=== PATIENT | female | born 1965 | race Caucasian/White ===

== ENCOUNTER 2016-05-21 09:23 | Emergency (ER) | payer OTHER ==
[~2016-05-21] VITALS: Ht 165.1 cm; Wt 71.9 kg
[~2016-05-21 09:23] MED LIST: ALPRAZOLAM1 MG PO; BENTYL10 MG PO; BENTYL20 MG PO; BUSPAR10 MG PO; CLONAZEPAM0.5 MG PO; CLONAZEPAM1 MG PO; DILAUDID2 MG PO; ESCITALOPRAM OX20 MG PO; FLAGYL250 MG PO; FLEXERIL10 MG PO; FLEXERIL5 M1 PO; IBUPROFEN600 MG PO; LORAZEPAM0.5 MG PO; MAALOX ADVANCE355 ML PO; MELATONIN1 MG PO; METRONIDAZOLE500 MG PO; MOTRIN800 MG PO; NAPROSYN500 MG PO; NORCO 5/3251 TABLET PO; OLANZAPINE10 MG PO; OMEPRAZOLE40 M1 PO; PAXIL20 MG PO; PAXIL40 MG PO; PERCOCET 5/31 TABLET PO; PRILOSEC40 MG PO; PROMETHAZINE HC25 M1 PO; PROTONIX40 MG PO; REGLAN10 MG PO; ROBITUSSIN NIG118 ML PO; TESSALON PERLE100 MG PO; TRAMADOL HCL50 MG PO; VICODIN,LORT1 TABLET PO; WELCHOL625 MG PO; WELLBUTRIN SR150 MG PO; ZANTAC300 MG PO; ZOFRAN ODT4 MG PO; ZOFRAN ODT8 MG PO; ZOFRAN4 MG PO
[2016-05-21 09:30] VITALS: BP 132/98
== END 2016-05-21 13:09 | disposition home or self-care (01) ==
LOC: EME 09:23
DX: F41.0 Panic disorder [episodic paroxysmal anxiety] (principal); F17.200 Nicotine dependence, unspecified, uncomplicated
CPT/HCPCS: 90839; 99281; 99284; J2060

== ENCOUNTER 2016-06-29 14:03 | Emergency (ER) | payer OTHER ==
[~2016-06-29] VITALS: Ht 165.1 cm; Wt 73.0 kg
[2016-06-29 14:52] LABS: HEMATOCRIT 45.3 % (36.0-46.0); MCH 31.3 PG (29.0-34.0); MCHC 33.1 G/DL (30.0-36.0); MCV 94.6 FL (83-99); MEAN PLAT.VOLUME 9.3 uM^3 (9.5-12.4); PLATELET COUNT 323 K/uL (156-360); RBC DIS.WIDTH-CV 13.6 % (11.8-14.6); RBC DIS.WIDTH-SD 47.2 % (39-53); RED BLOOD COUNT 4.79 M/uL (3.80-5.20); WHITE BLOOD COUNT 8.9 K/uL (4.1-10.2)
[2016-06-29 15:17] LABS: CHLORIDE 107 mEq/L (99-109); POTASSIUM 4.2 mEq/L (3.7-5.4); SODIUM 139 mEq/L (136-147)
[2016-06-29 15:19] LABS: GLUCOSE 104 mg/dL (70-99)
[2016-06-29 15:21] LABS: ANION GAP 11 MEQ/L (2-14)
[2016-06-29 15:23] LABS: GFR ESTIMATE (CALCULATED) > 59 mL/min/
[2016-06-29 15:24] LABS: UREA NITROGEN (BUN) 14 mg/dL (9-23)
[2016-06-29 15:25] LABS: TROP-I INTERPRETATION NEGATIVE; TROPONIN-I < 0.01 ng/mL (0.0-0.30)
[2016-06-29 16:28] LABS: INFLUENZA A VIRAL ANTIGEN NEGATIVE; INFLUENZA B VIRAL ANTIGEN NEGATIVE
[2016-06-29] MEDS ORDERED: CLONIDINE HCL0.1 MG PO (16:36)
[2016-06-29] MEDS ORDERED: TRAZODONE HCL50 MG PO (16:36)
[2016-06-29 16:59] VITALS: BP 132/71
[2016-06-30] MEDS ORDERED: TRAMADOL HCL50 MG PO (20:25)
== END 2016-06-29 17:01 | disposition home or self-care (01) ==
LOC: EME 14:03
PROVIDERS: Physician Assistant
DX: F11.23 Opioid dependence with withdrawal (principal); F41.9 Anxiety disorder, unspecified; G89.29 Other chronic pain; F17.200 Nicotine dependence, unspecified, uncomplicated
CPT/HCPCS: 71020; 80048; 84484; 85027; 87502; 93005; 99281; 99284

== ENCOUNTER 2016-06-30 17:51 | Emergency (ER) | payer OTHER ==
[~2016-06-30] VITALS: Ht 165.1 cm; Wt 72.2 kg
[~2016-06-30 17:51] MED LIST changes: +CLONIDINE HCL0.1 MG PO; +TRAZODONE HCL50 MG PO
[2016-06-30] MEDS ORDERED: TRAMADOL HCL50 MG PO (20:25)
[2016-06-30 20:33] VITALS: BP 124/86
== END 2016-06-30 20:33 | disposition home or self-care (01) ==
LOC: EME 17:51
DX: F11.23 Opioid dependence with withdrawal (principal)
CPT/HCPCS: 99281; 99283

== ENCOUNTER 2016-08-15 14:47 | Emergency (ER) | payer OTHER ==
[~2016-08-15] VITALS: Ht 165.1 cm; Wt 73.7 kg
[2016-08-15] MEDS ORDERED: NORCO 5/3251 TABLET PO (16:22)
[2016-08-15 16:46] VITALS: BP 109/77
== END 2016-08-15 16:47 | disposition home or self-care (01) ==
LOC: EME 14:47
DX: S93.402A Sprain of unspecified ligament of left ankle, initial encounter (principal); X50.1XXA Overexertion from prolonged static or awkward postures, initial encounter; W18.09XA Striking against other object with subsequent fall, initial encounter
CPT/HCPCS: 73610; 99281; 99283

== ENCOUNTER 2016-10-11 15:51 | Emergency (ER) | payer OTHER ==
[~2016-10-11] VITALS: Ht 165.1 cm; Wt 73.6 kg
[2016-10-11 17:09] LABS: HEMATOCRIT 42.2 % (36.0-46.0); MCH 31.3 PG (29.0-34.0); MCHC 32.2 G/DL (30.0-36.0); MEAN PLAT.VOLUME 8.8 uM^3 (9.5-12.4); PLATELET COUNT 242 K/uL (156-360); RBC DIS.WIDTH-CV 13.6 % (11.8-14.6); RBC DIS.WIDTH-SD 49.5 % (39-53); RED BLOOD COUNT 4.35 M/uL (3.80-5.20); WHITE BLOOD COUNT 8.7 K/uL (4.1-10.2)
[2016-10-11 17:17] LABS: CHLORIDE 102 mEq/L (99-109); POTASSIUM 4.1 mEq/L (3.7-5.4); SODIUM 140 mEq/L (136-147)
[2016-10-11 17:19] LABS: GLUCOSE 98 mg/dL (70-99)
[2016-10-11 17:20] LABS: ANION GAP 11 MEQ/L (2-14)
[2016-10-11 17:23] LABS: GFR ESTIMATE (CALCULATED) > 59 mL/min/
[2016-10-11 17:24] LABS: UREA NITROGEN (BUN) 8 mg/dL (9-23)
[2016-10-11] MEDS ORDERED: ROBITUSSIN NIG118 ML PO (17:28)
[2016-10-11] MEDS ORDERED: MUCUS ER600 MG PO (17:28)
[2016-10-11] MEDS ORDERED: LYRICA100 MG PO (17:42)
[2016-10-11] MEDS ORDERED: VENLAFAXINE HCL75 M3 PO (17:43)
[2016-10-11 17:48] VITALS: BP 117/88
== END 2016-10-11 17:59 | disposition home or self-care (01) ==
LOC: EME 15:51
DX: J06.9 Acute upper respiratory infection, unspecified (principal); F17.200 Nicotine dependence, unspecified, uncomplicated; Z71.6 Tobacco abuse counseling; G89.29 Other chronic pain; M54.9 Dorsalgia, unspecified; F32.9 Major depressive disorder, single episode, unspecified; F41.9 Anxiety disorder, unspecified
CPT/HCPCS: 71020; 80048; 85027; 99281; 99283

== ENCOUNTER 2016-10-24 15:12 | Emergency (ER) | payer OTHER ==
[~2016-10-24] VITALS: Ht 175.3 cm; Wt 72.9 kg
[~2016-10-24 15:12] MED LIST changes: +LYRICA100 MG PO; +MUCUS ER600 MG PO; +VENLAFAXINE HCL75 M3 PO
[2016-10-24 16:13] LABS: HEMATOCRIT 43.7 % (36.0-46.0); MCV 94.2 FL (83-99); MEAN PLAT.VOLUME 8.6 uM^3 (9.5-12.4); RBC DIS.WIDTH-CV 13.4 % (11.8-14.6); RBC DIS.WIDTH-SD 46.3 % (39-53); RED BLOOD COUNT 4.64 M/uL (3.80-5.20); WHITE BLOOD COUNT 8.6 K/uL (4.1-10.2)
[2016-10-24 16:14] LABS: PLATELET COUNT 328 K/uL (156-360)
[2016-10-24] MEDS ORDERED: HYDROCODON-ACE1 EAC7 PO (16:25)
[2016-10-24 16:26] LABS: CHLORIDE 109 mEq/L (99-109); POTASSIUM 4.5 mEq/L (3.7-5.4); SODIUM 143 mEq/L (136-147)
[2016-10-24 16:28] LABS: GLUCOSE 99 mg/dL (70-99)
[2016-10-24 16:29] LABS: ANION GAP 11 MEQ/L (2-14)
[2016-10-24 16:31] LABS: GFR ESTIMATE (CALCULATED) > 59 mL/min/
[2016-10-24 16:32] LABS: UREA NITROGEN (BUN) 5 mg/dL (9-23)
[2016-10-24 16:34] LABS: TROP-I INTERPRETATION NEGATIVE; TROPONIN-I < 0.01 ng/mL (0.0-0.30)
[2016-10-24 18:57] LABS: TROP-I INTERPRETATION NEGATIVE; TROPONIN-I < 0.01 ng/mL (0.0-0.30)
[2016-10-24] MEDS ORDERED: BENTYL20 MG PO (19:16)
[2016-10-24] MEDS ORDERED: ZOFRAN ODT4 MG PO (19:16)
[2016-10-24 19:34] VITALS: BP 144/73
== END 2016-10-24 19:35 | disposition home or self-care (01) ==
LOC: EME 15:12
PROVIDERS: Physician Assistant
DX: R10.9 Unspecified abdominal pain (principal); R11.2 Nausea with vomiting, unspecified; R19.7 Diarrhea, unspecified; F41.0 Panic disorder [episodic paroxysmal anxiety]; Z90.49 Acquired absence of other specified parts of digestive tract; Z90.710 Acquired absence of both cervix and uterus; F17.200 Nicotine dependence, unspecified, uncomplicated
CPT/HCPCS: 71020; 80048; 84484; 85027; 93005; 99281; 99283; J2060

== ENCOUNTER 2017-01-08 06:35 | Emergency (ER) | payer OTHER ==
[~2017-01-08] VITALS: Ht 165.1 cm; Wt 78.8 kg
[~2017-01-08 06:35] MED LIST changes: +HYDROCODON-ACE1 EAC7 PO
[2017-01-08] MEDS ORDERED: PREDNISONE20 MG PO (06:56)
[2017-01-08] MEDS ORDERED: FLEXERIL10 MG PO (06:56)
[2017-01-08] MEDS ORDERED: LIDODERM 5% P1 PATCH TD (06:56)
[2017-01-08 07:10] VITALS: BP 128/66
== END 2017-01-08 07:12 | disposition home or self-care (01) ==
LOC: EME 06:35
DX: M54.16 Radiculopathy, lumbar region (principal); G89.29 Other chronic pain; M48.00 Spinal stenosis, site unspecified; F32.9 Major depressive disorder, single episode, unspecified; F41.9 Anxiety disorder, unspecified; Z88.8 Allergy status to other drugs, medicaments and biological substances; F17.200 Nicotine dependence, unspecified, uncomplicated
CPT/HCPCS: 99281; 99284; J7512

== ENCOUNTER 2017-02-20 14:24 | Emergency (ER) | payer OTHER ==
[~2017-02-20] VITALS: Ht 165.1 cm; Wt 75.9 kg
[~2017-02-20 14:24] MED LIST changes: +LIDODERM 5% P1 PATCH TD; +PREDNISONE20 MG PO
[2017-02-20 15:30] LABS: HEMATOCRIT 45.1 % (36.0-46.0); MCH 30.7 PG (29.0-34.0); MCHC 32.8 G/DL (30.0-36.0); MCV 93.6 FL (83-99); MEAN PLAT.VOLUME 9.3 uM^3 (9.5-12.4); PLATELET COUNT 318 K/uL (156-360); RBC DIS.WIDTH-CV 13.3 % (11.8-14.6); RBC DIS.WIDTH-SD 45.6 % (39-53); RED BLOOD COUNT 4.82 M/uL (3.80-5.20); WHITE BLOOD COUNT 9.8 K/uL (4.1-10.2)
[2017-02-20 15:42] LABS: CHLORIDE 106 mEq/L (99-109); POTASSIUM 4.4 mEq/L (3.7-5.4); SODIUM 139 mEq/L (136-147)
[2017-02-20 15:44] LABS: GLUCOSE 101 mg/dL (70-99)
[2017-02-20 15:45] LABS: ANION GAP 9 MEQ/L (2-14)
[2017-02-20 15:46] LABS: TOTAL BILIRUBIN 0.4 mg/dL (0.0-1.0)
[2017-02-20 15:48] LABS: ALKALINE PHOSPHATASE 77 IU/L (3-129); GFR ESTIMATE (CALCULATED) > 59 mL/min/
[2017-02-20 15:49] LABS: UREA NITROGEN (BUN) 10 mg/dL (9-23)
[2017-02-20 15:51] LABS: LIPASE 21 U/L (1.0-51.0)
[2017-02-20 15:58] LABS: QUANTITATIVE HCG < 4.0 MIU/ML
[2017-02-20 16:38] LABS: ADD MIUA? YES; BILIRUBIN NEGATIVE; BLOOD SMALL; COLOR YELLOW ((YELLOW)); GLUCOSE (STRIP) NEGATIVE; KETONES NEGATIVE; LEUKOCYTES MODERATE; NITRITE NEGATIVE; PROTEIN (STRIP) NEGATIVE; SPECIFIC GRAVITY 1.013 (1.000-1.030); UROBILINOGEN 0.2 MG/DL (0.2-1.0)
[2017-02-20 16:41] LABS: BACTERIA RARE /HPF; EPITHELIAL CELLS 3+ /HPF; MUCUS TRACE /LPF; RED BLOOD CELLS 15-20 /HPF (0-5); UCUL ADDED? YES
[2017-02-20] MEDS ORDERED: ZOFRAN ODT8 MG PO (19:04)
[2017-02-20 19:21] VITALS: BP 119/75
== END 2017-02-20 19:22 | disposition home or self-care (01) ==
LOC: EME 14:24
DX: R10.13 Epigastric pain (principal); K21.9 Gastro-esophageal reflux disease without esophagitis; G89.29 Other chronic pain; F41.9 Anxiety disorder, unspecified; F32.9 Major depressive disorder, single episode, unspecified; Z90.49 Acquired absence of other specified parts of digestive tract; Z90.710 Acquired absence of both cervix and uterus; F17.200 Nicotine dependence, unspecified, uncomplicated; Z88.5 Allergy status to narcotic agent; Z88.8 Allergy status to other drugs, medicaments and biological substances
CPT/HCPCS: 74020; 80053; 81003; 83690; 84702; 85027; 87086; 99281; 99284

== ENCOUNTER 2017-04-25 08:34 | Emergency (ER) | payer OTHER ==
[~2017-04-25] VITALS: Ht 165.1 cm; Wt 76.0 kg
[2017-04-25 08:37] VITALS: BP 117/78
== END 2017-04-25 10:30 | disposition left against medical advice (07) ==
LOC: EME 08:34
DX: F41.0 Panic disorder [episodic paroxysmal anxiety] (principal); Z53.21 Procedure and treatment not carried out due to patient leaving prior to being seen by health care provider
CPT/HCPCS: 99281

== ENCOUNTER 2017-06-06 07:20 | Emergency (ER) | payer OTHER ==
[~2017-06-06] VITALS: Ht 165.1 cm; Wt 74.0 kg
[2017-06-06 09:00] VITALS: BP 140/98
== END 2017-06-06 09:00 | disposition home or self-care (01) ==
LOC: EME 07:20
DX: F41.9 Anxiety disorder, unspecified (principal); F32.9 Major depressive disorder, single episode, unspecified; F17.200 Nicotine dependence, unspecified, uncomplicated; Z88.5 Allergy status to narcotic agent; Z88.6 Allergy status to analgesic agent; Z88.8 Allergy status to other drugs, medicaments and biological substances
CPT/HCPCS: 99281; 99283

== ENCOUNTER 2017-06-28 04:53 | Emergency (ER) | payer OTHER ==
[~2017-06-28] VITALS: Ht 165.1 cm; Wt 79.2 kg
[2017-06-28 04:55] VITALS: BP 124/76
[2017-06-28 05:41] LABS: CHLORIDE 103 mEq/L (99-109); POTASSIUM 4.1 mEq/L (3.7-5.4); SODIUM 140 mEq/L (136-147)
[2017-06-28 05:43] LABS: GLUCOSE 125 mg/dL (70-99)
[2017-06-28 05:45] LABS: HEMATOCRIT 42.1 % (36.0-46.0); HEMOGLOBIN 13.5 G/DL (11.9-15.5); MCH 31.1 PG (29.0-34.0); MCHC 32.1 G/DL (30.0-36.0); PLATELET COUNT 274 K/uL (156-360); RBC DIS.WIDTH-CV 14.3 % (11.8-14.6); RBC DIS.WIDTH-SD 51.1 % (39-53); RED BLOOD COUNT 4.34 M/uL (3.80-5.20); WHITE BLOOD COUNT 9.5 K/uL (4.1-10.2)
[2017-06-28 05:47] LABS: CREATININE 0.8 mg/dL (0.6-1.3); GFR ESTIMATE (CALCULATED) > 59 mL/min/
[2017-06-28 05:48] LABS: UREA NITROGEN (BUN) 9 mg/dL (9-23)
== END 2017-06-28 06:39 | disposition left against medical advice (07) ==
LOC: EME 04:53
DX: R05 Cough (principal); R51 Headache; Z53.21 Procedure and treatment not carried out due to patient leaving prior to being seen by health care provider
CPT/HCPCS: 71046; 80048; 85027

== ENCOUNTER 2017-08-08 08:51 | Emergency (ER) | payer OTHER ==
[~2017-08-08] VITALS: Ht 165.1 cm; Wt 77.8 kg
[2017-08-08] MEDS ORDERED: ATIVAN1 MG PO (09:43)
[2017-08-08 10:43] VITALS: BP 134/84
== END 2017-08-08 10:48 | disposition home or self-care (01) ==
LOC: EME 08:51
DX: F41.0 Panic disorder [episodic paroxysmal anxiety] (principal); R11.0 Nausea; F32.9 Major depressive disorder, single episode, unspecified; Z90.49 Acquired absence of other specified parts of digestive tract; Z90.711 Acquired absence of uterus with remaining cervical stump; F17.200 Nicotine dependence, unspecified, uncomplicated
CPT/HCPCS: 99281; 99284; J0780

== ENCOUNTER 2017-08-18 12:42 | Emergency (ER) | payer OTHER ==
[~2017-08-18] VITALS: Ht 162.6 cm; Wt 77.6 kg
[~2017-08-18 12:42] MED LIST changes: +ATIVAN1 MG PO
[2017-08-18 13:40] LABS: HEMATOCRIT 40.6 % (36.0-46.0); HEMOGLOBIN 13.6 G/DL (11.9-15.5); MCH 31.3 PG (29.0-34.0); MCHC 33.5 G/DL (30.0-36.0); MCV 93.5 FL (83-99); PLATELET COUNT 278 K/uL (156-360); RBC DIS.WIDTH-CV 14.2 % (11.8-14.6); RBC DIS.WIDTH-SD 49.3 % (39-53); RED BLOOD COUNT 4.34 M/uL (3.80-5.20); WHITE BLOOD COUNT 8.5 K/uL (4.1-10.2)
[2017-08-18 13:49] LABS: D-DIMER ELISA < 150.00 ng/mLDDU (<230)
[2017-08-18 13:50] LABS: CHLORIDE 107 mEq/L (99-109); POTASSIUM 4.2 mEq/L (3.7-5.4); SODIUM 139 mEq/L (136-147)
[2017-08-18 13:52] LABS: GLUCOSE 97 mg/dL (70-99)
[2017-08-18 13:56] LABS: CREATININE 0.7 mg/dL (0.6-1.3); GFR ESTIMATE (CALCULATED) > 59 mL/min/
[2017-08-18 13:57] LABS: UREA NITROGEN (BUN) 6 mg/dL (9-23)
[2017-08-18 14:02] LABS: TROP-I INTERPRETATION NEGATIVE; TROPONIN-I < 0.01 ng/mL (0.0-0.30)
[2017-08-18] MEDS ORDERED: ZOFRAN4 MG PO (14:25)
[2017-08-18 15:08] VITALS: BP 121/72
== END 2017-08-18 15:09 | disposition home or self-care (01) ==
LOC: EME 12:42
PROVIDERS: Nurse Practitioner Family
DX: F41.9 Anxiety disorder, unspecified (principal); R07.9 Chest pain, unspecified; F32.9 Major depressive disorder, single episode, unspecified; Z90.711 Acquired absence of uterus with remaining cervical stump; Z88.5 Allergy status to narcotic agent; Z88.8 Allergy status to other drugs, medicaments and biological substances; Z88.6 Allergy status to analgesic agent; F17.200 Nicotine dependence, unspecified, uncomplicated
CPT/HCPCS: 71046; 80048; 84484; 85027; 85379; 93005; 99281; 99283

== ENCOUNTER 2017-08-20 08:51 | Emergency (ER) | payer OTHER ==
[~2017-08-20] VITALS: Ht 162.6 cm; Wt 77.4 kg
[2017-08-20 09:21] LABS: HEMATOCRIT 40.3 % (36.0-46.0); HEMOGLOBIN 13.7 G/DL (11.9-15.5); MCH 31.8 PG (29.0-34.0); MCV 93.5 FL (83-99); PLATELET COUNT 320 K/uL (156-360); RBC DIS.WIDTH-SD 48.5 % (39-53); RED BLOOD COUNT 4.31 M/uL (3.80-5.20); WHITE BLOOD COUNT 7.5 K/uL (4.1-10.2)
[2017-08-20 09:30] LABS: ALBUMIN 4.2 g/dL (3.2-4.8)
[2017-08-20 09:31] LABS: CHLORIDE 108 mEq/L (99-109); POTASSIUM 3.6 mEq/L (3.7-5.4); SODIUM 139 mEq/L (136-147)
[2017-08-20 09:33] LABS: GLUCOSE 130 mg/dL (70-99); TOTAL PROTEIN 7.4 g/dL (6.4-8.3)
[2017-08-20 09:35] LABS: TOTAL BILIRUBIN 0.5 mg/dL (0.0-1.0)
[2017-08-20 09:36] LABS: ALKALINE PHOSPHATASE 71 IU/L (3-129)
[2017-08-20 09:37] LABS: CREATININE 0.7 mg/dL (0.6-1.3); GFR ESTIMATE (CALCULATED) > 59 mL/min/
[2017-08-20 09:38] LABS: AST (GOT) 13 IU/L (2-34); UREA NITROGEN (BUN) 4 mg/dL (9-23)
[2017-08-20 09:40] LABS: ALT (GPT) 12 IU/L (3-49); LIPASE 20 U/L (1.0-51.0)
[2017-08-20 10:18] LABS: APPEARANCE CLOUDY ((CLEAR)); BILIRUBIN NEGATIVE; BLOOD MODERATE; COLOR YELLOW ((YELLOW)); GLUCOSE (STRIP) NEGATIVE; KETONES 5; LEUKOCYTES NEGATIVE; NITRITE NEGATIVE; PROTEIN (STRIP) NEGATIVE; SPECIFIC GRAVITY 1.008 (1.000-1.030); UROBILINOGEN 0.2 MG/DL (0.2-1.0)
[2017-08-20 10:23] LABS: BACTERIA RARE /HPF; EPITHELIAL CELLS 3+ /HPF; MUCUS TRACE /LPF; RED BLOOD CELLS 0-5 /HPF (0-5); UCUL ADDED? NO; WHITE BLOOD CELLS 0-5 /HPF (0-5)
[2017-08-20] MEDS ORDERED: NORCO 5/3251 TABLET PO (11:37)
[2017-08-20 12:14] VITALS: BP 129/75
== END 2017-08-20 12:19 | disposition home or self-care (01) ==
LOC: EME 08:51
PROVIDERS: Emergency Medicine Emergency Medical Services
DX: K29.70 Gastritis, unspecified, without bleeding (principal); R19.7 Diarrhea, unspecified; G89.29 Other chronic pain; M54.9 Dorsalgia, unspecified; M51.36 Other intervertebral disc degeneration, lumbar region; F41.9 Anxiety disorder, unspecified; F32.9 Major depressive disorder, single episode, unspecified; F17.200 Nicotine dependence, unspecified, uncomplicated; Z90.49 Acquired absence of other specified parts of digestive tract; Z90.711 Acquired absence of uterus with remaining cervical stump; Z88.5 Allergy status to narcotic agent; Z88.6 Allergy status to analgesic agent; Z88.8 Allergy status to other drugs, medicaments and biological substances
CPT/HCPCS: 80053; 81003; 83690; 85027; 99281; 99285; J0780; J3010; J7040

== ENCOUNTER 2017-08-24 12:37 | Emergency (ER) | payer OTHER ==
[~2017-08-24] VITALS: Ht 165.1 cm; Wt 76.5 kg
[2017-08-24 15:26] LABS: APPEARANCE SL.HAZY ((CLEAR)); BILIRUBIN NEGATIVE; BLOOD SMALL; COLOR YELLOW ((YELLOW)); GLUCOSE (STRIP) NEGATIVE; KETONES 5; LEUKOCYTES NEGATIVE; NITRITE NEGATIVE; PROTEIN (STRIP) 30; SPECIFIC GRAVITY 1.019 (1.000-1.030)
[2017-08-24 15:31] LABS: BACTERIA NONE SEEN /HPF; EPITHELIAL CELLS 3+ /HPF; MUCUS 1+ /LPF; RED BLOOD CELLS 0-5 /HPF (0-5); UCUL ADDED? NO; WHITE BLOOD CELLS 0-5 /HPF (0-5)
[2017-08-24 15:34] LABS: HEMATOCRIT 41.9 % (36.0-46.0); HEMOGLOBIN 14.2 G/DL (11.9-15.5); MCH 31.6 PG (29.0-34.0); MCHC 33.9 G/DL (30.0-36.0); MCV 93.3 FL (83-99); PLATELET COUNT 342 K/uL (156-360); RBC DIS.WIDTH-CV 13.9 % (11.8-14.6); RBC DIS.WIDTH-SD 47.6 % (39-53); RED BLOOD COUNT 4.49 M/uL (3.80-5.20); WHITE BLOOD COUNT 9.8 K/uL (4.1-10.2)
[2017-08-24 15:42] LABS: ALBUMIN 4.3 g/dL (3.2-4.8); CHLORIDE 109 mEq/L (99-109); POTASSIUM 3.6 mEq/L (3.7-5.4); SODIUM 142 mEq/L (136-147)
[2017-08-24 15:43] LABS: AMYLASE 31 IU/L (1-118)
[2017-08-24 15:44] LABS: GLUCOSE 97 mg/dL (70-99); TOTAL PROTEIN 7.5 g/dL (6.4-8.3)
[2017-08-24 15:48] LABS: ALKALINE PHOSPHATASE 72 IU/L (3-129); CREATININE 0.7 mg/dL (0.6-1.3); GFR ESTIMATE (CALCULATED) > 59 mL/min/
[2017-08-24 15:49] LABS: UREA NITROGEN (BUN) 7 mg/dL (9-23)
[2017-08-24 15:50] LABS: AST (GOT) 10 IU/L (2-34)
[2017-08-24 15:51] LABS: ALT (GPT) 9 IU/L (3-49)
[2017-08-24 15:52] LABS: TOTAL BILIRUBIN 0.3 mg/dL (0.0-1.0)
[2017-08-24 15:56] LABS: QUANTITATIVE HCG < 4.0 MIU/ML
[2017-08-24] MEDS ORDERED: CARAFATE1 GM PO (18:02)
[2017-08-24] MEDS ORDERED: ZOFRAN4 MG PO (18:02)
[2017-08-24 18:10] VITALS: BP 139/87
== END 2017-08-24 18:12 | disposition home or self-care (01) ==
LOC: RME 12:37 → EME 12:37 → RME 18:12
PROVIDERS: Physician Assistant
DX: R10.11 Right upper quadrant pain (principal); Z90.49 Acquired absence of other specified parts of digestive tract; F32.9 Major depressive disorder, single episode, unspecified; F17.200 Nicotine dependence, unspecified, uncomplicated; F41.9 Anxiety disorder, unspecified; Z88.5 Allergy status to narcotic agent
CPT/HCPCS: 74177; 80053; 81003; 82150; 84702; 85027; 99281; 99285; J1885; J2405; J7030

== ENCOUNTER 2017-08-26 09:30 | Emergency (ER) | payer OTHER ==
[~2017-08-26] VITALS: Ht 165.1 cm; Wt 76.2 kg
[~2017-08-26 09:30] MED LIST changes: +CARAFATE1 GM PO
[2017-08-26 10:43] LABS: HEMATOCRIT 41.4 % (36.0-46.0); MCH 31.4 PG (29.0-34.0); MCHC 33.8 G/DL (30.0-36.0); MCV 92.8 FL (83-99); PLATELET COUNT 330 K/uL (156-360); RBC DIS.WIDTH-SD 47.5 % (39-53); RED BLOOD COUNT 4.46 M/uL (3.80-5.20); WHITE BLOOD COUNT 7.2 K/uL (4.1-10.2)
[2017-08-26 10:53] LABS: ALBUMIN 4.2 g/dL (3.2-4.8); CHLORIDE 107 mEq/L (99-109); POTASSIUM 3.5 mEq/L (3.7-5.4); SODIUM 140 mEq/L (136-147)
[2017-08-26 10:55] LABS: GLUCOSE 105 mg/dL (70-99)
[2017-08-26 10:56] LABS: TOTAL PROTEIN 7.2 g/dL (6.4-8.3)
[2017-08-26 10:57] LABS: TOTAL BILIRUBIN 0.3 mg/dL (0.0-1.0)
[2017-08-26 10:59] LABS: ALKALINE PHOSPHATASE 70 IU/L (3-129); CREATININE 0.8 mg/dL (0.6-1.3); GFR ESTIMATE (CALCULATED) > 59 mL/min/
[2017-08-26 11:00] LABS: UREA NITROGEN (BUN) 6 mg/dL (9-23)
[2017-08-26 11:01] LABS: AST (GOT) 10 IU/L (2-34)
[2017-08-26 11:02] LABS: ALT (GPT) 8 IU/L (3-49); LIPASE 14 U/L (1.0-51.0)
[2017-08-26 12:43] VITALS: BP 132/87
[2017-08-26 12:47] LABS: APPEARANCE SL.HAZY ((CLEAR)); BILIRUBIN NEGATIVE; BLOOD SMALL; COLOR YELLOW ((YELLOW)); GLUCOSE (STRIP) NEGATIVE; KETONES NEGATIVE; LEUKOCYTES NEGATIVE; NITRITE NEGATIVE; PROTEIN (STRIP) NEGATIVE; SPECIFIC GRAVITY 1.008 (1.000-1.030); UROBILINOGEN 0.2 MG/DL (0.2-1.0)
[2017-08-26 13:01] LABS: BACTERIA RARE /HPF; EPITHELIAL CELLS 2+ /HPF; MUCUS TRACE /LPF; RED BLOOD CELLS 0-5 /HPF (0-5); WHITE BLOOD CELLS 0-5 /HPF (0-5)
== END 2017-08-26 12:45 | disposition home or self-care (01) ==
LOC: EME 09:30
PROVIDERS: Family Medicine
DX: R10.11 Right upper quadrant pain (principal); G89.29 Other chronic pain; M54.9 Dorsalgia, unspecified; F41.9 Anxiety disorder, unspecified; F32.9 Major depressive disorder, single episode, unspecified; M51.36 Other intervertebral disc degeneration, lumbar region; F17.200 Nicotine dependence, unspecified, uncomplicated; Z90.49 Acquired absence of other specified parts of digestive tract; Z95.9 Presence of cardiac and vascular implant and graft, unspecified; Z90.711 Acquired absence of uterus with remaining cervical stump; Z87.19 Personal history of other diseases of the digestive system; Z88.5 Allergy status to narcotic agent; Z88.8 Allergy status to other drugs, medicaments and biological substances; Z88.6 Allergy status to analgesic agent
CPT/HCPCS: 74022; 80053; 81003; 81025; 83605; 83690; 85027; 99281; 99285; J2270; J2405; J7040

== ENCOUNTER 2017-09-20 09:12 | Emergency (ER) | payer OTHER ==
[~2017-09-20] VITALS: Ht 165.1 cm; Wt 74.2 kg
[2017-09-20 11:15] VITALS: BP 144/86
== END 2017-09-20 11:16 | disposition home or self-care (01) ==
LOC: EME 09:12
DX: M54.5 Low back pain (principal); G89.29 Other chronic pain; Z88.5 Allergy status to narcotic agent; Z88.6 Allergy status to analgesic agent; Z88.8 Allergy status to other drugs, medicaments and biological substances
CPT/HCPCS: 72100; 99281; 99283; J1885

== ENCOUNTER 2017-10-08 09:36 | Emergency (ER) | payer OTHER ==
[~2017-10-08] VITALS: Ht 165.1 cm; Wt 72.5 kg
[2017-10-08] MEDS ORDERED: CLONIDINE HCL0.1 MG PO (12:23)
[2017-10-08] MEDS ORDERED: PROMETHAZINE HC50 M1 PO (12:23)
[2017-10-08 12:45] VITALS: BP 101/62
[2017-10-09] MEDS ORDERED: ZOFRAN ODT4 MG PO (12:07)
[2017-10-09] MEDS ORDERED: ATARAX,VISTARIL50 MG PO (12:12)
== END 2017-10-08 12:56 | disposition home or self-care (01) ==
LOC: EME 09:36
DX: F11.23 Opioid dependence with withdrawal (principal); M54.2 Cervicalgia; M54.9 Dorsalgia, unspecified; G89.29 Other chronic pain; F41.9 Anxiety disorder, unspecified; F32.9 Major depressive disorder, single episode, unspecified; F17.200 Nicotine dependence, unspecified, uncomplicated; Z79.891 Long term (current) use of opiate analgesic; Z87.39 Personal history of other diseases of the musculoskeletal system and connective tissue; Z90.49 Acquired absence of other specified parts of digestive tract; Z88.5 Allergy status to narcotic agent; Z88.6 Allergy status to analgesic agent; Z88.8 Allergy status to other drugs, medicaments and biological substances
CPT/HCPCS: 99281; 99284; Q0169

== ENCOUNTER 2017-10-09 09:40 | Emergency (ER) | payer OTHER ==
[~2017-10-09] VITALS: Ht 165.1 cm; Wt 73.2 kg
[~2017-10-09 09:40] MED LIST changes: +PROMETHAZINE HC50 M1 PO
[2017-10-09 10:33] LABS: HEMOGLOBIN 15.5 G/DL (11.9-15.5); MCH 31.4 PG (29.0-34.0); MCHC 34.4 G/DL (30.0-36.0); MCV 91.3 FL (83-99); PLATELET COUNT 285 K/uL (156-360); RBC DIS.WIDTH-CV 13.1 % (11.8-14.6); RBC DIS.WIDTH-SD 43.6 % (39-53); RED BLOOD COUNT 4.93 M/uL (3.80-5.20); WHITE BLOOD COUNT 8.1 K/uL (4.1-10.2)
[2017-10-09 10:59] LABS: CHLORIDE 105 mEq/L (99-109); SODIUM 139 mEq/L (136-147); TROP-I INTERPRETATION NEGATIVE; TROPONIN-I < 0.01 ng/mL (0.0-0.30)
[2017-10-09 11:01] LABS: GLUCOSE 127 mg/dL (70-99)
[2017-10-09 11:05] LABS: CREATININE 0.8 mg/dL (0.6-1.3); GFR ESTIMATE (CALCULATED) > 59 mL/min/
[2017-10-09 11:06] LABS: UREA NITROGEN (BUN) 11 mg/dL (9-23)
[2017-10-09] MEDS ORDERED: ZOFRAN ODT4 MG PO (12:07)
[2017-10-09] MEDS ORDERED: ATARAX,VISTARIL50 MG PO (12:12)
[2017-10-09 12:21] VITALS: BP 99/58
== END 2017-10-09 12:29 | disposition home or self-care (01) ==
LOC: EME 09:40
DX: F11.23 Opioid dependence with withdrawal (principal); R11.2 Nausea with vomiting, unspecified; F41.9 Anxiety disorder, unspecified; G89.29 Other chronic pain; F32.9 Major depressive disorder, single episode, unspecified; F17.200 Nicotine dependence, unspecified, uncomplicated; Z90.49 Acquired absence of other specified parts of digestive tract; Z88.5 Allergy status to narcotic agent; Z88.6 Allergy status to analgesic agent; Z88.8 Allergy status to other drugs, medicaments and biological substances
CPT/HCPCS: 71046; 80048; 84484; 85027; 93005; 99281; 99284; J2060; J2405; J7030